=== PATIENT | female | born 1970 | race Caucasian/White ===

== ENCOUNTER 2017-12-26 02:06 | Emergency (ER) | payer OTHER ==
[~2017-12-26] VITALS: Ht 165.1 cm; Wt 87.1 kg
[2017-12-26] MEDS ORDERED: ALBUTEROL (02:20)
[2017-12-26] MEDS ORDERED: Prednisone20 MG PO (02:35)
== END 2017-12-26 03:00 | disposition home or self-care (01) ==
LOC: ER 02:06
DX: M25.561 Pain in right knee (principal); G89.29 Other chronic pain; M79.671 Pain in right foot; L40.9 Psoriasis, unspecified; F17.200 Nicotine dependence, unspecified, uncomplicated; Z79.52 Long term (current) use of systemic steroids
CPT/HCPCS: 99283

== ENCOUNTER → 2018-01-19 | Outpatient (CLI) | payer OTHER ==
[~2018-01-19] MED LIST: ALBUTEROL; Prednisone20 MG PO
[2018-01-20 09:45] LABS: Candida species (DNA Probe) Negative (NEGATIVE); G. vaginalis (DNA Probe) Positive (NEGATIVE); T. vaginalis (DNA Probe) Negative (NEGATIVE)
[2018-01-24 03:12] LABS: CHLAMYDIA TRACHOMATIS, NAA Negative (Negative); NEISSERIA GONORRHOEAE, NAA Negative (Negative)
== END | disposition home or self-care (01) ==
LOC: LAB SHORT 11:33 → LAB 11:33
PROVIDERS: Physician Assistant
DX: Z01.419 Encounter for gynecological examination (general) (routine) without abnormal findings (principal)
CPT/HCPCS: 87480; 87491; 87510; 87591; 87624; 87660; G0145